=== PATIENT | female | born 2005 | race Two or more races ===

== ENCOUNTER 2024-04-22 11:06 | Emergency (ER) | payer OTHER ==
[2024-04-22] MEDS: METOCLOPRAMIDE HCL INJECTION 10 MG/2 ML VIAL IVPB ONE (11:44)
[2024-04-22] MEDS: DEXTROSE 5%-NORMAL SALINE 500 ML IV ONE (11:44)
[2024-04-22 11:48] LABS: BASO % 0.4 % (0-2.0); EOS % 0.6 % (0-4.5); HEMATOCRIT 41.9 % (32.4-45.2); HEMOGLOBIN 14.4 GM/dL (10.7-15.3); LYMPH % 21.4 % (8-40); MCHC 34.3 g/dl (32.0-36.0); MEAN CELL VOLUME 84.6 fl (80-96); MEAN PLT VOLUME 8.8 fl (7.5-11.1); MONO % 6.1 % (3.8-10.2); NEUT % 71.5 % (42.8-82.8); PLATELET COUNT 279 10^3/uL (134-434); RBC 4.95 M/mm3 (3.60-5.2); RDW 13.8 % (11.6-15.6); WHITE BLOOD COUNT 8.5 K/mm3 (4.0-10.0)
[2024-04-22 12:15] LABS: POTASSIUM 3.5 mmol/L (3.5-5.1)
[2024-04-22 12:17] LABS: CALCIUM 9.3 mg/dL (8.5-10.1)
[2024-04-22 12:18] LABS: ALBUMIN 3.7 g/dl (3.4-5.0); BLOOD UREA NITROGEN 5.9 mg/dL (7-18); MAGNESIUM 2.3 mg/dL (1.8-2.4)
[2024-04-22 12:21] LABS: CREATININE 0.6 mg/dL (0.55-1.3)
[2024-04-22 12:22] LABS: BILIRUBIN,TOTAL 0.5 mg/dL (0.2-1)
[2024-04-22 12:23] LABS: TOT PROT 7.2 g/dl (6.4-8.2)
[2024-04-22] MEDS ORDERED: ONDANSETRON 4 MG/2 ML VIAL ONE (12:44)
[2024-04-22] MEDS: PYRIDOXINE HCL (B-6) 50 MG TABLET (FP) PO STA (12:53)
[2024-04-22] MEDS: ONDANSETRON 4 MG/2 ML VIAL IVPUSH ONE (12:53)
[2024-04-22 13:06] LABS: PH,URINE 7.5 (5.0-8.0); URINE APPEARANCE CLEAR; URINE BILIRUBIN NEGATIVE (NEGATIVE); URINE COLOR YELLOW; URINE GLUCOSE (UA) 3+ (NEGATIVE); URINE KETONE 1+ (NEGATIVE); URINE LEUK ESTERASE NEGATIVE (NEGATIVE); URINE NITRITE NEGATIVE (NEGATIVE); URINE PROTEIN NEGATIVE (NEGATIVE); URINE UROBILINOGEN 0.2 mg/dL (0.2-1.0)
[2024-04-22 15:19] VITALS: BP 98/52; PULSE 68; RESP 18; TEMP 98.4; BMI 22.3
== END 2024-04-22 14:08 | disposition home or self-care (01) ==
LOC: JER 11:06
PROC: 3E033GC Introduction of Other Therapeutic Substance into Peripheral Vein, Percutaneous Approach (ICD-10-PCS; principal; 2024-04-22)
PROC: 3E033GC Introduction of Other Therapeutic Substance into Peripheral Vein, Percutaneous Approach (ICD-10-PCS; 2024-04-22)
DX: O21.0 Mild hyperemesis gravidarum (principal); O26.811 Pregnancy related exhaustion and fatigue, first trimester; R42 Dizziness and giddiness; Z3A.11 11 weeks gestation of pregnancy
CPT/HCPCS: 36415; 80053; 81003; 83735; 85025; 87086; 93005; 93010; 99284-25

== ENCOUNTER 2024-05-02 22:58 | Emergency (ER) | payer OTHER ==
[2024-05-02 23:03] VITALS: BMI 22.3
[2024-05-03] MEDS: LACTATED RINGERS SOLUTION 1,000 ML/1,000 ML INFUS.BAG IV SCH (00:59)
[2024-05-03 01:12] LABS: PH,URINE 6.5 (5.0-8.0); URINE APPEARANCE CLEAR; URINE BILIRUBIN NEGATIVE (NEGATIVE); URINE COLOR YELLOW; URINE GLUCOSE (UA) NEGATIVE (NEGATIVE); URINE KETONE 3+ (NEGATIVE); URINE LEUK ESTERASE NEGATIVE (NEGATIVE); URINE NITRITE NEGATIVE (NEGATIVE); URINE PROTEIN TRACE (NEGATIVE)
[2024-05-03] MEDS: DEXTROSE 5%-LACTATED RINGERS 1,000 ML IV SCH (02:35)
[2024-05-03] MEDS ORDERED: METOCLOPRAMIDE HCL INJECTION 10 MG/2 ML VIAL ONE (03:13)
[2024-05-03] MEDS: METOCLOPRAMIDE HCL INJECTION 10 MG/2 ML VIAL IVPUSH ONE (03:24)
[2024-05-03 05:07] VITALS: BP 118/78; PULSE 80; RESP 18; TEMP 98.2
== END 2024-05-03 04:57 | disposition home or self-care (01) ==
LOC: JER 22:58
PROC: 3E033GC Introduction of Other Therapeutic Substance into Peripheral Vein, Percutaneous Approach (ICD-10-PCS; principal; 2024-05-03)
DX: O21.9 Vomiting of pregnancy, unspecified (principal); O26.891 Other specified pregnancy related conditions, first trimester; R10.9 Unspecified abdominal pain; Z3A.01 Less than 8 weeks gestation of pregnancy
CPT/HCPCS: 36415; 81003; 84702; 99284-25

== ENCOUNTER 2024-05-28 13:53 | Emergency (ER) | payer OTHER ==
[2024-05-28 13:59] VITALS: BP 104/63; PULSE 104; RESP 18; TEMP 98.3; BMI 20.5
[2024-05-28] MEDS ORDERED: FAMOTIDINE 20 MG/50 ML IVPB 20 MG/50 ML MG IVPB ONE (15:21)
[2024-05-28 15:46] LABS: BASO % 0.5 % (0-2.0); EOS % 0.6 % (0-4.5); HEMATOCRIT 39.6 % (32.4-45.2); HEMOGLOBIN 13.5 GM/dL (10.7-15.3); LYMPH % 16.5 % (8-40); MCH 28.9 pg (25.7-33.7); MCHC 33.9 g/dl (32.0-36.0); MEAN CELL VOLUME 85.3 fl (80-96); MEAN PLT VOLUME 8.9 fl (7.5-11.1); MONO % 5.2 % (3.8-10.2); NEUT % 77.2 % (42.8-82.8); PLATELET COUNT 238 10^3/uL (134-434); RBC 4.65 M/mm3 (3.60-5.2); RDW 14.1 % (11.6-15.6); WHITE BLOOD COUNT 11.1 K/mm3 (4.0-10.0)
[2024-05-28] MEDS: SODIUM CHLORIDE 1,000 ML IV STA (15:47)
[2024-05-28] MEDS ORDERED: SUCRALFATE 1 GM TABLET (FP) ONE (15:55)
[2024-05-28] MEDS: SUCRALFATE 1 GM TABLET (FP) PO ONE (16:02)
[2024-05-28] MEDS: FAMOTIDINE 20 MG/50 ML IVPB 20 MG/50 ML MG IVPB ONE (16:02)
[2024-05-28] MEDS: METOCLOPRAMIDE HCL INJECTION 10 MG/2 ML VIAL IVPB ONE (16:02)
[2024-05-28] MEDS ORDERED: METOCLOPRAMIDE HCL INJECTION 10 MG/2 ML VIAL ONE (16:03)
[2024-05-28 16:12] LABS: POTASSIUM 3.7 mmol/L (3.5-5.1)
[2024-05-28 16:14] LABS: ALBUMIN 3.3 g/dl (3.4-5.0); BLOOD UREA NITROGEN 8.8 mg/dL (7-18)
[2024-05-28 16:18] LABS: CREATININE 0.5 mg/dL (0.55-1.3)
[2024-05-28 16:20] LABS: BILIRUBIN,TOTAL 0.4 mg/dL (0.2-1); TOT PROT 6.8 g/dl (6.4-8.2)
[2024-05-28 17:05] LABS: EPI CELLS >36 /uL (0-25.1); HYALINE CASTS 1 /uL (0-3.1); URINE APPEARANCE CLOUDY; URINE BACTERIA 1304 /uL (0-1359); URINE BILIRUBIN NEGATIVE (NEGATIVE); URINE COLOR YELLOW; URINE GLUCOSE (UA) NEGATIVE (NEGATIVE); URINE KETONE 2+ (NEGATIVE); URINE LEUK ESTERASE TRACE (NEGATIVE); URINE NITRITE NEGATIVE (NEGATIVE); URINE PROTEIN NEGATIVE (NEGATIVE); URINE RBC 52 /uL (0-23.9); URINE WBC 32 /uL (0-25.8)
[2024-05-28 20:42] LABS: HIV INTERPRETATION NEGATIVE (NEGATIVE)
== END 2024-05-28 17:03 | disposition home or self-care (01) ==
LOC: JER 13:53
PROC: 3E033GC Introduction of Other Therapeutic Substance into Peripheral Vein, Percutaneous Approach (ICD-10-PCS; principal; 2024-05-28)
PROC: 3E033GC Introduction of Other Therapeutic Substance into Peripheral Vein, Percutaneous Approach (ICD-10-PCS; 2024-05-28)
DX: O21.0 Mild hyperemesis gravidarum (principal); Z3A.20 20 weeks gestation of pregnancy
CPT/HCPCS: 36415; 80053; 81003; 85025; 86803; 87389; 99284-25